=== PATIENT | male | born 1945 | race Caucasian/White ===

== ENCOUNTER 2019-12-09 05:50 | Inpatient (IN) ==
--- NOTE | 2019-11-20 11:53 | PAT Medication Instructions ---
Medication Instructions Date of Service November 20, 2019 Home Medications allopurinol 300 mg PO QAM aspirin [Aspir-81] 81 mg PO QAM benralizumab [Fasenra] 30 mg SUBCUT Q8WK budesonide-formoterol [Symbicort] 2 puff INHALATION BID clopidogrel [Plavix] 75 mg PO QAM coenzyme Q10 [Co Q-10] 100 mg PO BID furosemide [Lasix] 40 mg PO PM furosemide [Lasix] 80 mg PO QAM gabapentin 800 mg PO TID latanoprost 1 drp OPHTHALMIC (EYE) PM mecobalamin (vitamin B12) [B12 Active] 1,000 mcg PO QAM metformin 500 mg PO BID metoprolol succinate 100 mg PO PM potassium chloride 20 meq PO QAM turmeric 400 mg PO BID ASK your prescriber and surgeon aspirin [Aspir-81] 81 mg PO QAM benralizumab [Fasenra] 30 mg SUBCUT Q8WK clopidogrel [Plavix] 75 mg PO QAM STOP taking 2 weeks before surgery (or as soon as possible if surgery is within 2 weeks) coenzyme Q10 [Co Q-10] 100 mg PO BID turmeric 400 mg PO BID DO NOT take the morning of surgery furosemide [Lasix] 80 mg PO QAM mecobalamin (vitamin B12) [B12 Active] 1,000 mcg PO QAM metformin 500 mg PO BID potassium chloride 20 meq PO QAM Take morning of surgery With a small sip of water, OTHERWISE NOTHING TO EAT OR DRINK AFTER MIDNIGHT: allopurinol 300 mg PO QAM budesonide-formoterol [Symbicort] 2 puff INHALATION BID gabapentin 800 mg PO TID Take evening before surgery budesonide-formoterol [Symbicort] 2 puff INHALATION BID furosemide [Lasix] 40 mg PO PM gabapentin 800 mg PO TID latanoprost 1 drp OPHTHALMIC (EYE) PM metformin 500 mg PO BID metoprolol succinate 100 mg PO PM Other Notes If you have any questions please call us at [phone] or [phone] or [phone] or [phone]
--- NOTE | 2019-11-25 11:49 | Anesthesiology Consultation ---
Date of Service November 25, 2019 Assessment & Plan (1) Encounter for pre-operative examination: - Awaiting most recent cardiology office visit note, EKG, ECHO (Dr. Espinoza). Also, patient states stress test scheduled 11/25 by cardiology. Awaiting report. - Awaiting optimization from pulmonary (Dr. Solis). - Anemia: H/H 10//34.5 on preop labs. No known hx of anemia reported by patient and no available comparison labs. Awaiting response from PCP (Dr. Storm). Per PAT assessment on 11/24: Travel screen- Lives in [facility]. Wears mask in public. No known COVID-19 positive contacts. No current COVID-19 related symptoms. No hx of COVID-19 testing. - Check BSG AM DOS - ASA instructions per surgeon/prescriber Chart Review Chart Review: Patient seen in Pre Admission Testing Teaching & Discussion Pre-Anesthesia Teaching/Discussion Notes: Instructed NPO after midnight before surgery,except medications with 15 cc of water. Medication instructions provided according to the PAT guidelines. History Surgery Operation Date: 12/09/19 07:45 Proposed Procedures p L3-L5 Decompression and Fusion, Spinal Cord Monitoring - Carlos Jolly, Height/Weight Height: 5 ft 10 in Weight: 111.4 kg Allergies Allergy/AdvReac Type Severity Reaction Status Date / Time ketorolac [From Toradol] Allergy Severe Difficulty Verified 11/17/19 12:11 Breathing Medications Home Medications Medication Instructions Recorded Confirmed Last Taken allopurinol 300 mg PO QAM 11/17/19 11/17/19 Unknown aspirin [Aspir-81] 81 mg PO QAM 11/17/19 11/17/19 Unknown benralizumab [Fasenra] 30 mg SUBCUT Q8WK 11/17/19 11/17/19 Unknown budesonide-formoterol [Symbicort] 2 puff INHALATION BID 11/17/19 11/17/19 Unkn own coenzyme Q10 [Co Q-10] 100 mg PO BID 11/17/19 11/17/19 Unknown furosemide [Lasix] 40 mg PO PM 11/17/19 11/17/19 Unknown furosemide [Lasix] 80 mg PO QAM 11/17/19 11/17/19 Unknown gabapentin 800 mg PO TID 11/17/19 11/17/19 Unknown latanoprost 1 drp OPHTHALMIC (EYE) PM 11/17/19 11/17/19 Unknown mecobalamin (vitamin B12) [B12 1,000 mcg PO QAM 11/17/19 11/17/19 Unknown Active] metformin 500 mg PO BID 11/17/19 11/17/19 Unknown metoprolol succinate 100 mg PO PM 11/17/19 11/17/19 Unknown potassium chloride 20 meq PO QAM 11/17/19 11/17/19 Unknown turmeric 400 mg PO BID 11/17/19 11/17/19 Unknown Past Medical History Medical History Asthma stable Atrial fibrillation CHF (congestive heart failure) Chronic obstructive pulmonary disease stable, 2 LPM O2 (rare use)- on Fasenra Degenerative disc disease Diabetes mellitus, type 2 NIDDM Obesity Osteoarthritis UTI (urinary tract infection) on Bactrim DS (to be completed prior to surgery) Exercise / Class Metabolic Activity III < 4 Walking/Shop/Light housework (walker PRN, wheelchair for longer distances) Past Surgical History Surgical History H/O cardiac radiofrequency ablation 2017> SUCCESSFUL FOR A FEW DAYS THEN ANOTHER CARDIOVERSION History of appendectomy History of bronchoscopy DECEMBER 2018 History of cardiac cath 2009> NO STENTS History of cardioversion X2 LAST ONE 2017> NOW ON METOPROLOL BUT STILL IN AFIB History of colonoscopy History of endoscopic sinus surgery Presence of Watchman left atrial appendage closure device NO LONGER PRESENT > REMOVED MAY 2019 > DR. ESPINOZA- WAS ON PLAVIX POST- OPERATIVELY, SINCE DISCONTINUED BY CARDIO Past Anesthesia History No Hx of Anesthesia Complications and No Family Hx of Anesthesia Complications History of PONV No Hx of PONV and No Hx of Motion Sickness Social History Smoking Status: Former smoker Do You Dip or Chew Tobacco: No Smoking End Date: Quit 1980 Hx Alcohol Use: Yes Alcohol type: beer alcohol intake frequency: holidays/special occasions only Hx Substance Use: No substance use type: does not use Review of Systems Rare wheeze. Patient denies chest pain, shortness of breath, fever, chills, c ough, palpitations. Physical Exam Vital Signs VITALS BP 102/64 P 87 TEMP 98.1 SP02 89%RA RESP 16 PHYSICAL Full neck and c-spine range of motion. Full TMJ range of motion. TMD 3 finger breaths Mallampati Score 1 Dentition: intact, + cap on molar left lower Lungs: clear throughout to auscultation Cardiac: regular rate and rhythm, no murmurs noted Spine: normal Carotid arteries: negative bruit Extremities: no edema Testing Laboratory Results 11/25/19 13:27 PT 11.5 Seconds (9.0-12.0) 11/25/19 13:27 INR 1.1 (0.9-1.1) 11/25/19 13:27 APTT 29.7 Seconds (21.0-31.0) 11/25/19 13:27 Blood Type O Positive 11/25/19 13:27 Antibody Screen NEGATIVE 11/25/19 13:27 Surgeon's office made aware of elevated WBC. 11/23/19 UA: + bacteria (prescribed bactrim ds by PCP/abx to be completed prior to surgery. Per Domitila at surgeon's office, they request UA be rechecked AM DOS/order placed) 11/19/19 SODIUM 142 POTASSIUM 4.2 CHLORIDE 98 CO2 28 BUN 21 CREATININE 1.22 GLUCOSE 138 10/17/19 HGBA1C 7.5%
[2019-11-25 13:47] LABS: Basophils # (auto) 0.05 K/uL (0-0.2); Basophils % (auto) 0.3 %; Hematocrit (blood only) 34.5 % (42-52); Hemoglobin 10.6 g/dL (14.0-18.0); Immature Granulocytes % (auto) 1.3 %; Lymphocytes # (auto) 0.92 K/uL (1.2-3.4); Lymphocytes % (auto) 5.9 %; Mean Corpuscular Hgb Conc 30.7 g/dL (32-36); Mean Corpuscular Volume 94.5 fL (80-100); Monocytes # (auto) 1.09 K/uL (0.11-0.59); Monocytes % (auto) 6.9 %; Neutrophils # (auto) 13.43 K/uL (1.4-6.5); Neutrophils % (auto) 85.6 %; Platelet Count 383 K/uL (130-400); RDW Coefficient of Variation 17.1 % (11.5-14.5); RDW Standard Deviation 59.5 fL (36.4-46.3); Red Blood Count 3.65 M/uL (4.7-6.1); White Blood Count 15.69 K/uL (4.8-10.8)
[2019-11-25 13:57] LABS: INR 1.1 (0.9-1.1); Partial Thromboplastin Ratio 1.1; Partial Thromboplastin Time 29.7 Seconds (21.0-31.0); Prothrombin Time 11.5 Seconds (9.0-12.0)
[2019-12-09] MEDS ORDERED: CeleBREX 200 MG CAP PO SCH (06:00)
[2019-12-09] MEDS ORDERED: GABAPENTIN 300 MG CAP PO SCH (06:00)
[2019-12-09] MEDS ORDERED: CEFAZOLIN 2000MG 2,000 MG/15 ML SYR IV SCH (06:00)
[2019-12-09] MEDS ORDERED: LR 15ML/HR IV SCH (06:00)
[2019-12-09] MEDS ORDERED: ACETAMINOPHEN 500 MG TAB PO SCH (06:00)
[2019-12-09 06:43] LABS: Appearance Urine Clear (Clear); Bilirubin Urine Negative (Negative); Blood Urine Negative (Negative); Color Urine Yellow; Glucose Urine UA Negative (Negative); Ketones Urine Negative (Negative); Leukocyte Esterase Urine Negative (Negative); Nitrite Urine Negative (Negative); Protein Urine Negative (Negative); Specific Gravity Urine 1.025 (1.000-1.030); Urobilinogen Urine Negative (Negative)
[2019-12-09] MEDS ORDERED: GLYCOPYRROLATE 0.2 MG/ML VIAL ONE ×2 (06:56→10:23)
[2019-12-09] MEDS ORDERED: DEXAMETHASONE SOD INJ 4 MG/ML VIAL ONE (06:56)
[2019-12-09] MEDS ORDERED: ONDANSETRON INJ 2 MG/ML 2 ML VIAL ONE (06:56)
[2019-12-09] MEDS ORDERED: LIDOCAINE HCL 2% 2 ML VIAL/AMP(20MG/ML) INFIL ONE (06:56)
[2019-12-09] MEDS ORDERED: NEOSTIGMINE METHYLSULFATE 5 MG/5 ML SYR ONE (06:56)
[2019-12-09] MEDS ORDERED: PROPOFOL IV EMULSION 10 MG/ML 20 ML VIAL IV ONE (06:56)
[2019-12-09] MEDS ORDERED: fentaNYL citrate 100 MCG/2 ML VIAL ONE (06:57)
[2019-12-09] MEDS ORDERED: MIDAZOLAM HCL 1 MG/ML 2ML VIAL ONE (06:57)
[2019-12-09] MEDS ORDERED: BACITRACIN INJ 50,000 UNIT VIAL ONE (07:01)
[2019-12-09] MEDS ORDERED: BUPIVACAINE 0.5 % 5 MG/1 ML MPF 30ML VIAL ONE (07:02)
[2019-12-09] MEDS ORDERED: EPINEPHrine INJ 1 MG/ML AMP ONE (07:02)
--- NOTE | 2019-12-09 07:34 | History & Physical Bridge Note ---
Date of Service December 09, 2019 History & Physical Bridge Note I have examined the patient, reviewed the History & Physical and in the interval since the performance of the History & Physical I have noted the following changes of clinical significance: no changes noted
--- NOTE | 2019-12-09 07:35 | History & Physical Report ---
Date of Service December 09, 2019 Assessment & Plan (1) Neurogenic claudication due to lumbar spinal stenosis: L4-S1 decompression fusion Present on Admission?: Yes History of Present Illness Chief Complaint: Back and bilateral leg pain Primary Care Provider: Gomez Storm This is a 74-year-old male presents with chronic persistent back and bilateral leg pain. After failing extensive course of nonoperative care is here for surgical invention. Allergies Allergy/AdvReac Type Severity Reaction Status Date / Time ketorolac [From Toradol] Allergy Severe Difficulty Verified 12/09/19 06:39 Breathing Home Medications Home Medications Medication Instructions Recorded Confirmed Type allopurinol 300 mg PO QAM 11/17/19 12/09/19 History aspirin [Aspir-81] 81 mg PO QAM 11/17/19 12/09/19 History benralizumab [Fasenra] 30 mg SUBCUT Q8WK 11/17/19 12/09/19 History budesonide-formoterol [Symbicort] 2 puff INHALATION BID 11/17/19 12/09/19 History coenzyme Q10 [Co Q-10] 100 mg PO BID 11/17/19 12/09/19 History furosemide [Lasix] 40 mg PO PM 11/17/19 12/09/19 History furosemide [Lasix] 80 mg PO QAM 11/17/19 12/09/19 History gabapentin 800 mg PO TID 11/17/19 12/09/19 History latanoprost 1 drp OPHTHALMIC (EYE) PM 11/17/19 12/09/19 History mecobalamin (vitamin B12) [B12 1,000 mcg PO QAM 11/17/19 12/09/19 History Active] metformin 500 mg PO BID 11/17/19 12/09/19 History metoprolol succinate 100 mg PO PM 11/17/19 12/09/19 History potassium chloride 20 meq PO QAM 11/17/19 12/09/19 History turmeric 400 mg PO BID 11/17/19 12/09/19 History prednisone 20 mg PO DAILY 12/09/19 12/09/19 History Past Med/Surg History Medical History Asthma stable Atrial fibrillation CHF (congestive heart failure) Chronic obstructive pulmonary disease stable, 2 LPM O2 (rare use)- on Fasenra Degenerative disc disease Diabetes mellitus, type 2 NIDDM Obesity Osteoarthritis UTI (urinary tract infection) on Bactrim DS (to be completed prior to surgery) Surgical History H/O cardiac radiofrequency ablation 2017> SUCCESSFUL FOR A FEW DAYS THEN ANOTHER CARDIOVERSION History of appendectomy History of bronchoscopy DECEMBER 2018 History of cardiac cath 2009> NO STENTS History of cardioversion X2 LAST ONE 2017> NOW ON METOPROLOL BUT STILL IN AFIB History of colonoscopy History of endoscopic sinus surgery Presence of Watchman left atrial appendage closure device NO LONGER PRESENT > REMOVED MAY 2019 > DR. LEE- WAS ON PLAVIX POST- OPERATIVELY, SINCE DISCONTINUED BY CARDIO Social History Preferred Language: Omani Communication Ability: Effective High School Sports Coach Required: No Beliefs That Will Affect Care: None Current Living Situation: Spouse Other Information That Helps Us Care for You: No Feels Safe at Home: Yes Safety Concerns: Feels Safe At This Time Smoking Status: Former smoker Do You Dip or Chew Tobacco: No ; Smoking End Date: Quit 1980 ; Second Hand Exposure: No ; Tobacco Cessation Education Requested by Patient: No Hx Alcohol Use: Yes Alcohol type: beer Hx Substance Use: No Physical Exam Physical Exam: Patient is alert and oriented neurologically intact. Heart regular rate and rhythm. Lungs clear to auscultation. Results & Data Vital Signs (Past 12 Hours) Vital Signs Temp Pulse Resp BP Pulse Ox 12/09/19 06:28 36.7 C 76 20 133/90 96
[2019-12-09] MEDS ORDERED: ePHEDrine sulfate 50 MG/ML AMP IV PRN (07:59)
[2019-12-09] MEDS ORDERED: ONDANSETRON INJ 2 MG/ML 2 ML VIAL IV PRN ×2 (07:59→11:52)
[2019-12-09] MEDS ORDERED: LABETALOL HCL IV 5 MG/ML 20ML IV PRN (07:59)
[2019-12-09] MEDS ORDERED: PHENYLEPHRINE 100MCG/ML 5ML SYR IV PRN (07:59)
[2019-12-09] MEDS ORDERED: MEPERIDINE HCL 25 MG/ML CARP/VIAL IV PRN (07:59)
[2019-12-09] MEDS ORDERED: HYDROmorphone INJ 1 MG/ML SYRINGE IV PRN ×2 (07:59→11:52)
[2019-12-09] MEDS ORDERED: ATROPINE SULFATE 0.1 MG/ML 10ML SYR IV PRN (07:59)
[2019-12-09] MEDS ORDERED: fentaNYL citrate 100 MCG/2 ML VIAL IV PRN (07:59)
[2019-12-09] MEDS ORDERED: VANCOMYCIN HCL 1000MG/20ML VIAL ONE (08:04)
[2019-12-09] MEDS ORDERED: GENTAMICIN SULFATE 40 MG/ML 2 ML VIAL ONE (08:04)
[2019-12-09] MEDS ORDERED: HYDROCORTISONE SOD SUCCINATE 100 MG/2 ML VIAL ONE (08:11)
[2019-12-09] MEDS ORDERED: SUCCINYLCHOLINE CHLORIDE 20 MG/ML 10 ML VIAL IV ONE (08:11)
[2019-12-09] MEDS ORDERED: ROCURONIUM BROMIDE 10 MG/ML 5 ML VIAL IV ONE (08:11)
[2019-12-09] MEDS ORDERED: HYDROmorphone INJ 2 MG/ML SYR/VIAL ONE (08:32)
[2019-12-09] MEDS ORDERED: ePHEDrine sulfate 50 MG/ML SYR ONE (09:19)
[2019-12-09] MEDS ORDERED: PHENYLEPHRINE 100MCG/ML 5ML SYR ONE (09:19)
[2019-12-09] MEDS ORDERED: FLOSEAL HEMOSTATIC MATRIX 10ML TOP ONE (09:50)
--- NOTE | 2019-12-09 10:01 | Operative Report ---
Post Operative Report Pre & Post Diagnosis Operation Date: 12/09/19 07:45 Pre-Op Diagnosis: LUMBAR SPINAL STENOSIS W NEUROGENIC CLAUDICATION Spondylolisthesis L4-L5. Post-Op Diagnosis: Same I identified the patient and participated in the time-out.: Yes Procedure Operation Date: 12/09/19 07:45 Actual Procedures #1 lumbar decompression with bilateral medial facetectomies and foraminotomies L3-4, L4-5 and L5-S1. #2 posterior spinal fusion L4-5 L5-S1. #3 placement posterior instrumentation L4-5 L5-S1. #4 interbody fusion L4-5. #5 placement of peek cage 12 x 26 mm L4-5. #6 placement locally harvested morselized autograft in the posterior gutters. #7 placement infuse collagen sponge, master graft in the posterior gutters and ostial amp and interbody space. Surgeon Carlos Jolly, Bead Worker Sewing Janice Estevez Estimated Blood Loss 150 Findings See Below Patient is 5 foot 10 inches tall weighing over 109 kg with a BMI in excess of 34. The patient's body habitus did add significant technical difficulty adding at least 25% increase in operative time requiring her deepest retractors and longest instruments in order to perform his procedure. Specimens None Indications This is a 74-year-old male who presents with the above-mentioned diagnosis after failing extensive course of nonoperative care is here for the above-mentioned procedure. Description of Procedure Patient was met with identified informed consent obtained. Patient was then taken to the operative suite underwent intubation and placed in a prone position the Lance table on top of the Alfonso frame. All bony prominences well-padded eyes inspected to ensure no external pressure placed upon them. This point the lumbar spine was prepped and draped in normal sterile fashion. Sharp dissection with the assistance of Bovie cautery was performed down to and exposing the lamina and transverse processes of L4-L5 and the sacral ala bilaterally. From a caudal cephalad fashion complete laminectomy of L5 L4 and partial laminectomy of L3 was performed including bilateral medial facetectomies and foraminotomies addressing severe spinal stenosis. After this complete pedicle screws were then placed in L4-L5 and S1 levels bilaterally with assistance of fluoroscopy and appropriately sized frankie placed. By way of a trans-foraminal approach on the left complete discectomy of L4-5 was performed endplates curetted to subcortical bleeding bone and a 12 x 26 mm peek cage filled with osteo-bone graft tapped in position. The rods were then locked into final position bilaterally. The transverse processes of L4-L5 and the sacral ala burred to subcortical bleeding bone. Infuse collagen sponge master graft local autograft was placed in the posterior lateral gutters. 15 round YVAN drain inserted. The incision was then closed with 1 Vicryl in the fascia 2-0 Vicryl subcutaneously and 4 Monocryl for final skin closure. Steri-Strips dressings placed. Patient waken taken to PACU stable condition. Please note spinal cord monitoring was utilized that the procedure no changes noted. Lastly Janice sEtevez was present at the entire procedure involved the patient positioning complex portions of the procedure and final skin closure. I attest to the content of the Intraoperative Record and any orders documented therein. Any exceptions are noted below.
--- NOTE | 2019-12-09 10:36 | Fluoroscopy Report ---
FL lumbar spine 2-3V CLINICAL HISTORY: L3-L5 DECOMPRESSION AND FUSIONpain COMPARISON STUDY: None FLUOROSCOPY TIME: 29 seconds NUMBER OF FLUOROSCOPIC IMAGES: 2 FINDINGS: Image intensifier utilized for an L4-S1 laminectomy and fusion. A disc spacer is present at L4-L5. IMPRESSION: Image intensifier utilized for an L4-S1 laminectomy and fusion ACT 112: Negative or not required by law. The above report was generated using voice recognition software. It may contain grammatical, syntax or spelling errors. Electronically signed by: Doug Joseph M.D. 12/09/2019 10:35 AM
[2019-12-09 10:58] LABS: Hemoglobin 9.7 g/dL (14.0-18.0)
--- NOTE | 2019-12-09 11:15 | Anesthesiology Progress Note ---
Date of Service December 09, 2019 Anesthesia Post Procedure Vital Signs Vital Signs: Temp Pulse Pulse Resp BP BP Pulse Ox 12/09/19 11:05 76 14 108/74 97 12/09/19 10:55 74 16 104/68 97 12/09/19 10:45 76 13 110/74 98 12/09/19 10:35 72 16 111/70 97 12/09/19 10:25 77 14 113/72 100 12/09/19 10:15 36.6 C 82 16 112/72 100 12/09/19 06:28 36.7 C 76 20 133/90 96 Pain Intensity Back: Pain Intensity: 2 Transfer of Care Handoff Completed per policy Notes Mental Status: alert / awake / arousable Patient Amnestic to Procedure: Yes Nausea / Vomiting: adequately controlled Pain: adequately controlled Airway Patency, RR, SpO2: stable & adequate BP & HR: stable & adequate Hydration State: stable & adequate Anesthetic Complications: no major complications apparent and Pt Satisfied with anesthetic care Notes: The patient did well during surgery. He was monitored with an arterial line and was hemodynamically stable. He now is awake and comfortable in PACU. Postop hgb is 9.7 down from preop level of 10.6. Postop BSG is 147. I spoke to the [facility] Hospitalist team and they will follow him on the floor.
[2019-12-09] MEDS ORDERED: ACETAMINOPHEN 1,000 MG/100 ML VIAL IV PRN (11:52)
[2019-12-09] MEDS ORDERED: DO NOT ADMINISTER PNEUMOCOCCAL VACCINE PRN (11:52)
[2019-12-09] MEDS ORDERED: bisacodyL 10 MG SUPP PR PRN (11:52)
[2019-12-09] MEDS ORDERED: PROMETHAZINE HCL 12.5 MG in SODIUM CHLORIDE 0.9% 50 ML IV PRN (11:52)
[2019-12-09] MEDS ORDERED: ONDANSETRON 4 MG OD TAB PO PRN (11:52)
[2019-12-09] MEDS ORDERED: METOCLOPRAMIDE HCL INJ 5 MG/ML 2 ML VIAL IV PRN (11:52)
[2019-12-09] MEDS ORDERED: DO NOT ADMINISTER FLU VACCINE PRN (11:52)
[2019-12-09] MEDS ORDERED: NALOXONE HCL 0.4 MG/1 ML VIAL/CARP IV PRN (11:52)
[2019-12-09] MEDS ORDERED: OXYCODONE HCL IR 5 MG TAB (IMMEDIATE RELEASE) PO PRN (11:52)
[2019-12-09] MEDS ORDERED: FAMOTIDINE 20 MG TAB PO PRN (11:52)
[2019-12-09] MEDS ORDERED: LORazepam 0.5 MG/1 ML VIAL IV PRN (11:52)
[2019-12-09] MEDS ORDERED: SOD PHOSPHATE/SOD BIPHOSPHATE ENEMA 132 ML BTL PR PRN (11:52)
[2019-12-09] MEDS ORDERED: HYDROmorphone INJ 0.5 MG/0.5 ML SYR IV PRN (11:52)
[2019-12-09] MEDS ORDERED: ALUMINUM/MAGNESIUM SUSP 30 ML UDC PO PRN (11:52)
[2019-12-09] MEDS ORDERED: MAGNESIUM HYDROXIDE SUSP 30 ML UDC PO PRN (11:52)
[2019-12-09] MEDS ORDERED: LORazepam 0.5 MG TAB PO PRN (11:52)
[2019-12-09] MEDS ORDERED: TRAMADOL HCL 50 MG TABLET PO PRN (11:52)
[2019-12-09] MEDS ORDERED: GLUCAGON FOR INJ 1 MG VIAL IM PRN (12:15)
[2019-12-09] MEDS ORDERED: CARBOHYDRATES FOR HYPOGLYCEMIA PO PRN (12:15)
[2019-12-09] MEDS ORDERED: GLUCOSE 40% GEL 15 GM TUBE PO PRN (12:15)
[2019-12-09] MEDS ORDERED: GLUCOSE 10 TABS/TUBE PO PRN (12:15)
[2019-12-09] MEDS ORDERED: DEXTROSE 50% 50 ML SYRINGE IV PRN (12:15)
[2019-12-09] MEDS ORDERED: PHARMACY GLYCEMIC MGMT CONSULT PRN (12:18)
[2019-12-09] MEDS ORDERED: ALBUT/IPRATROP 3MG/0.5MG NEB 3 ML VIAL NEB PRN (13:12)
--- NOTE | 2019-12-09 13:16 | Consultation ---
Date of Consultation December 09, 2019 Assessment & Plan (1) Status post lumbar surgery: Post op day# 0 S/P L-S1 by Dr Jolly EBL#150ml Post op doing well with pain controlled -pain management per ortho -wound management per ortho -PT/OT as appropriate -DVT prophylaxis per ortho -incentive spirometry -monitor H&H for acute blood loss anemia; Pre-op Hgb: 10.6, repeat Hgb today post op: 9.7 (2) Atrial fibrillation: S/P unsuccessful cardioversion in 2018, s/p ablation in 2018 and Watchman procedure in 04/[address] Espinoza in [place] -Rate controlled -Not on anticoagulation -Continue aspirin, metoprolol (3) Systolic CHF: Ischemic cardiomyopathy EF 30-35% on recent outpatient echo -Plan to resume lasix tomorrow (4) Decubitus ulcer: H/O decubitus ulcer for several months. Last saw wound clinic in [place] in 06/2019 -Wound nurse (5) Diabetes mellitus, type 2: -Obtain A1c in AM -Hold metformin -Glycemic pharmacy on board, Novolog sliding scale per protocol, appreciate pharmacy assistance (6) Chronic obstructive pulmonary disease: Asthma O2 dependent at 2L HS and prn. Follows with pulmonology in [place] -Continue supplemental oxygen -Continue daily prednisone 20mg, home inhalers -Duonebs prn (7) CKD (chronic kidney disease): Unknown stage and baseline -Obtain BMP tomorrow -Monitor renal functions -Avoid nephrotoxic agents when possible (8) Gout: -Continue allopurinol DVT Prophylaxis -SCDs Disposition per primary service Follows with Dr Gomez Storm in [place] for routine care Pt was seen and care coordinated with Dr Garcia. See addendum Supervising Physician Co-Signing Physician Notes Patient is a 74-year-old male with history of COPD, chronic oxygen dependency, atrial fibrillation S/P ablation and watchman procedure, nonischemic cardiomyopathy, diabetes mellitus and other medical problems was seen and examined postop after having lumbar decompression, fusion surgery by Dr. Jolly. Patient is doing well postop. Denies any significant pain at the surgical site. Also denies any chest pain, shortness of breath, dizziness, numbness or tingling in feet. Tolerating diet. On exam patient is obese, no apparent distress, normocephalic atraumatic, lungs are clear to auscultation, irregularly irregular rhythm, no audible murmur, 2+ bilateral lower extremity edema, back--surgical site in dressing, abdomen soft, obese, no tenderness, normal bowel sounds, grossly no focal neurological deficits. Patient is consulted for postop medical management. DVT prophylaxis, wound care, activity as per primary team. Continue bowel regimen to prevent constipation. Monitor CBC for postop blood loss anemia. Continue home medications for atrial fibrillation. Current ly not on anticoagulation. Will hold p.o. medications for diabetes. Utilize insulin therapy while hospitalized. I personally reviewed the record. Patient is interviewed and examined at bedside. Patient's care is coordinated with Sandrine Araya PA-C. Please refer to the documentation above for details of patient's presentation and for discussion of other issues. History of Present Illness Requesting Physician: Dr Jolly Reason for Consultation: Post op medical management Attending Physician: Carlos Jolly, DO History of Present Illness Pt is 74 y/o M with PMH asthma, COPD, O2 dependent 2L HS and prn, atrial fibrillation s/p unsuccessful cardioversion in 2017, s/p ablation in 2018 and Watchman procedure in 04/2019, nonischemic cardiomyopathy, systolic CHF, DM II, HTN, CKD, gout seen in medical consultation s/p L3-S1 decompression and fusion today by Dr Jolly. Post op pt reports pain controlled. Still with paresthesias BLE. Tolerating liquid lunch. Denies N/V, SOB, CP, palpitations, dizziness. Has Rogers cath in place. Reports chronic BLE edema, denies any worsening recently. Pt reports decubitus ulcer since 06/2019 and reports currently healing. Denies fever/chills, diaphoresis, LARIOS, neck pain, cough, choking, abdominal pain, rashes. Allergies Allergy/AdvReac Type Severity Reaction Status Date / Time ketorolac [From Toradol] Allergy Severe Difficulty Verified 12/09/19 06:39 Breathing Home Medications Home Medications Medication Instructions Recorded Confirmed Type allopurinol 300 mg PO QAM 11/17/19 12/09/19 History aspirin [Aspir-81] 81 mg PO QAM 11/17/19 12/09/19 History benralizumab [Fasenra] 30 mg SUBCUT Q8WK 11/17/19 12/09/19 History budesonide-formoterol [Symbicort] 2 puff INHALATION BID 11/17/19 12/09/19 History coenzyme Q10 [Co Q-10] 100 mg PO BID 11/17/19 12/09/19 History furosemide [Lasix] 40 mg PO PM 11/17/19 12/09/19 History furosemide [Lasix] 80 mg PO QAM 11/17/19 12/09/19 History gabapentin 800 mg PO TID 11/17/19 12/09/19 History latanoprost 1 drp OPHTHALMIC (EYE) PM 11/17/19 12/09/19 History mecobalamin (vitamin B12) [B12 1,000 mcg PO QAM 11/17/19 12/09/19 History Active] metformin 500 mg PO BID 11/17/19 12/09/19 History metoprolol succinate 100 mg PO PM 11/17/19 12/09/19 History potassium chloride 20 meq PO QAM 11/17/19 12/09/19 History turmeric 400 mg PO BID 11/17/19 12/09/19 History prednisone 20 mg PO DAILY 12/09/19 12/09/19 History Patient History Medical History (Updated 12/09/19 @ 14:19 by Sandrine Araya PA-C) Asthma stable Atrial fibrillation CHF (congestive heart failure) Chronic obstructive pulmonary disease stable, 2 LPM O2 (rare use)- on Fasenra CKD (chronic kidney disease) Degenerative disc disease Diabetes mellitus, type 2 NIDDM Gout Obesity Osteoarthritis Systolic CHF UTI (urinary tract infection) on Bactrim DS (to be completed prior to surgery) Surgical History (Updated 12/09/19 @ 14:19 by Sandrine Araya PA-C) H/O cardiac radiofrequency ablation 2018> SUCCESSFUL FOR A FEW DAYS THEN ANOTHER CARDIOVERSION History of appendectomy History of bronchoscopy DECEMBER 2018 History of cardiac cath 2009> NO STENTS History of cardioversion X2 LAST ONE 2017> NOW ON METOPROLOL BUT STILL IN AFIB History of colonoscopy History of endoscopic sinus surgery Presence of Watchman left atrial appendage closure device NO LONGER PRESENT > REMOVED MAY 2019 > DR. ESPINOZA- WAS ON PLAVIX POST- OPERATIVELY, SINCE DISCONTINUED BY CARDIO Social History (Updated 12/09/19 @ 14:17 by Sandrine Araya PA-C) Preferred Language: Pashto Communication Ability: Effective Woods Laborer Required: No Beliefs That Will Affect Care: None Current Living Situation: Spouse Other Information That Helps Us Care for You: No Feels Safe at Home: Yes Safety Concerns: Feels Safe At This Time Smoking Status: Former smoker Do You Dip or Chew Tobacco: No ; Smoking End Date: Quit 1980 ; Second Hand Exposure: No ; Tobacco Cessation Education Requested by Patient: No Hx Alcohol Use: Yes (1-2 drinks a week) Alcohol type: beer Hx Substance Use: No Review of Systems Review of Systems: All systems reviewed & are unremarkable except as noted in HPI & below Physical Exam Physical Exam: General: no distress, obese Head: normocephalic, atraumatic Eyes: conjunctiva non-injected, anicteric ENT: normal inspection external ears, nose, mucous membranes moist Neck: supple, trachea midline Lungs: clear, no respiratory distress, no wheezing/rhonchi/rales CV: irregularly irregular, no murmur, + pretibial edema Abd: normal BS, soft,protuberant, non-tender Ext: no cyanosis, no calf tenderness Neuro: A&O x 3, no focal deficits noted, normal affect Skin: warm, dry Results & Data ([facility]) Vital Signs (Past 12 Hours) Vital Signs Temp Pulse Pulse Resp BP BP Pulse Ox 12/09/19 12:45 88 16 106/71 99 12/09/19 12:15 68 16 102/67 98 12/09/19 11:45 36.4 C L 72 17 105/70 98 12/09/19 11:25 36.5 C 73 16 107/70 97 12/09/19 11:15 76 14 108/74 97 12/09/19 11:05 76 14 108/74 97 12/09/19 10:55 74 16 104/68 97 12/09/19 10:45 76 13 110/74 98 12/09/19 10:35 72 16 111/70 97 12/09/19 10:25 77 14 113/72 100 12/09/19 10:15 36.6 C 82 16 112/72 100 12/09/19 06:28 36.7 C 76 20 133/90 96 Laboratory Results Short CBC 12/09/19 Range/Units 10:49 Hgb 9.7 L (14.0-18.0) g/dL Hct 33.0 L (42-52) % Urine 12/09/19 Range/Units 06:30 Urine Color Yellow Urine Appearance Clear (Clear) Urine pH 5.0 (4.5-7.5) Ur Specific [place] 1.025 (1.000-1.030) Urine Protein Negative (Negative) Urine Glucose (UA) Negative (Negative)
[2019-12-09] MEDS ORDERED: NovoLIN-N (NPH) PER UNIT CHARGE SQ ONE (13:30)
--- NOTE | 2019-12-09 13:42 | Pharmacy Report ---
Glycemic Control Consultation - Date of Service December 09, 2019 - Scope Scope: Glycemic Pharmacist consulted for glycemic control and to write orders per [facility] inpatient glycemic control protocol. - Objective Weight: 109.3 kg Accuchecks BSG (last 24hrs): 12/09/19 12/09/19 12/09/19 06:24 10:17 12:19 POC Glucose 154 H 147 H 170 H HbA1c: Pending for 12/10/19 - Recent Pertinent Medications Outpatient Anti-diabetic Regimen: * Metformin 500mg PO BIDM Risk Factors for Insulin Resistance: * Steroids * Recent Surgery * Diet - Assessment & Plan Assessment & Plan: ASSESSMENT: * 74yo T2DM male with unknown degree of outpatient control. A1c not listed in chart. Ordered for tomorrow AM per protocol * Pt is maintained on metformin monotherapy as an outpatient * Oral agents are not recommended for inpatient use d/t drug interactions, changing PO intake, and difficulty titrating for acute hyper/hypoglycemia. ADA recommends re-initiating outpatient oral agents 1-2 days prior to discharge if/when appropriate if they were held on admission. * Will hold oral agents for admission and utilize SQ basal bolus insulin regimen which is the recommended regimen for inpatient glycemic control. * Will initiate weight based insulin dosing for steroid hyperglycemia (pt received DXM 8mg IV) and titrate based on BSG trends. * Will start with conservative dosing since patient is only ordered a clear liquid diet and steroids have their most profound effect on post-prandial hyperglycemia. PLAN FOR INPATIENT GLYCEMIC CONTROL: * Holding outpatient oral diabetes medications * Steroid induced hyperglycemia * NPH 20 units SQ X 1 dose * Pt will resume outpatient prednisone dosing tomorrow AM - will re-eval steroid insulin dosing after A1c results and BSG trends from POD#0 * Bolus insulin * NovoLog per scale ACHS or Q6hrs while NPO * Goal Range: Low 110 mg/dL - High 140 mg/dL * Correction Factor: 20 mg/dL/unit * Nutritional / Prandial insulin per carb ratio of 1 unit per 7 grams CHO consumed * Please note that the plan above was derived based on current level of insulin resistance and hospital stress. These recommendations are appropriate for inpatient admission only. Plan of care upon discharge will need to be reassessed to avoid potential outpatient hypo/hyperglycemia. Thank you.
[2019-12-09] MEDS: SODIUM CHLORIDE 0.9% 1000ML 1,000 ML IV SCH ×2 (14:31→22:27)
[2019-12-09] MEDS: GABAPENTIN 400 MG CAP PO SCH ×2 (14:32→20:32)
[2019-12-09] MEDS: INSULIN ASPART 100 UNITS/ML 3 ML PEN SC SCH ×3 (14:34→22:27)
[2019-12-09] MEDS: CEFAZOLIN 2000MG 2,000 MG/15 ML SYR IV SCH (16:41)
[2019-12-09] MEDS: DOCUSATE SODIUM/SENNA 50/8.6MG TAB PO SCH (20:32)
[2019-12-09] MEDS: METOPROLOL SUCC 50MG EXT REL TAB PO SCH (20:33)
[2019-12-09] MEDS: LATANOPROST 0.005% OP SOLN 2.5 ML BTL OP SCH (20:34)
[2019-12-09] MEDS ORDERED: NON-FORMULARY MEDICATION (Coenzyme Q10 [Co Q-10] 100 MG) PO SCH (21:00)
[2019-12-09] MEDS ORDERED: FUROSEMIDE 40 MG TAB PO SCH (21:00)
[2019-12-10] MEDS: CEFAZOLIN 2000MG 2,000 MG/15 ML SYR IV SCH (00:45)
[2019-12-10] MEDS: POLYETHYLENE (MIRALAX) 17 GM PACK PO SCH ×4 (05:30→23:43)
[2019-12-10] MEDS: ACETAMINOPHEN 500 MG TAB PO PRN (05:35)
[2019-12-10 06:01] LABS: Basophils # (auto) 0.02 K/uL (0-0.2); Basophils % (auto) 0.1 %; Hemoglobin 9.3 g/dL (14.0-18.0); Immature Granulocytes # (auto) 0.39 K/uL (0.00-0.02); Lymphocytes # (auto) 0.91 K/uL (1.2-3.4); Lymphocytes % (auto) 4.7 %; Mean Corpuscular Hemoglobin 27.1 pg (25-34); Mean Corpuscular Hgb Conc 28.2 g/dL (32-36); Mean Corpuscular Volume 96.2 fL (80-100); Monocytes # (auto) 0.79 K/uL (0.11-0.59); Neutrophils # (auto) 17.44 K/uL (1.4-6.5); Neutrophils % (auto) 89.2 %; Platelet Count 424 K/uL (130-400); RDW Coefficient of Variation 17.5 % (11.5-14.5); RDW Standard Deviation 61.2 fL (36.4-46.3); Red Blood Count 3.43 M/uL (4.7-6.1); White Blood Count 19.55 K/uL (4.8-10.8)
[2019-12-10 06:22] LABS: BUN Creatinine Ratio 28.5 (10-20); Calcium 8.8 mg/dl (8.5-10.1); Creatinine Clr Calc Pharmacy 82.3 ml/min; Est GFR (African American) 87.2; Est GFR (Non-African American) 75.2; Magnesium 2.3 mg/dl (1.8-2.4); Potassium 4.7 mmol/L (3.5-5.1)
[2019-12-10 07:05] LABS: Estimated Average Glucose 146 mg/dl; Hemoglobin A1C 6.7 % (4.5-5.6)
[2019-12-10] MEDS ORDERED: FUROSEMIDE 80 MG TAB PO SCH (09:00)
[2019-12-10] MEDS ORDERED: POTASSIUM CHLORIDE PWD 20 MEQ PACK PO SCH (09:00)
[2019-12-10] MEDS ORDERED: NovoLIN-N (NPH) PER UNIT CHARGE SQ STA (09:01)
[2019-12-10] MEDS: FLUTICASONE/VILANTEROL 200/25MCG 14 PUFFS/INHALER INH SCH (09:42)
[2019-12-10] MEDS: INSULIN ASPART 100 UNITS/ML 3 ML PEN SC SCH ×4 (09:45→21:46)
[2019-12-10] MEDS: predniSONE 20 MG TAB PO SCH (09:51)
[2019-12-10] MEDS: allopurinoL 300 MG TAB PO SCH (09:51)
[2019-12-10] MEDS: ASPIRIN 81 MG ECTAB PO SCH (09:51)
[2019-12-10] MEDS: CYANOCOBALAMIN 500 MCG TABLET (VITAMIN B-12) PO SCH (09:51)
[2019-12-10] MEDS: GABAPENTIN 400 MG CAP PO SCH ×3 (09:52→21:44)
[2019-12-10] MEDS ORDERED: SODIUM CHLORIDE 0.9% 500 ML IV SCH (10:00)
--- NOTE | 2019-12-10 10:03 | Hospitalist Progress Note ---
Date of Service December 10, 2019 Assessment & Plan (1) Status post lumbar surgery: -POD #1 L4-S1 decompression and fusion by Dr. Jolly - activity and wound care orders as per ortho - pain control with bowel regimen - PT/OT - monitor H/H for acute blood loss anemia and transfuse blood products PRN -EBL 150 cc, drain output 420 cc so far -Hgb 10.6 -> 9.7 -> 9.3 (2) Hypotension: -BP this AM 94/58 -had some mild lightheadedness with standing -will hold furosemide today and given some gentle IVF -likely due to mild dehydration postoperatively, Hgb stable (3) Atrial fibrillation: -S/P unsuccessful cardioversion in 2018, s/p ablation in 2018 and Watchman procedure in 04/2019 -Follows with Dr Espinoza in [place] -Rate controlled on metoprolol, will continue -Not on anticoagulation (4) Systolic CHF: -Ischemic cardiomyopathy -EF 30-35% on recent outpatient echo -Holding Lasix as above; hold potassium as well, K+ 4.7 today -Monitor volume status closely (5) Decubitus ulcer: -H/O decubitus ulcer for several months. Last saw wound clinic in [place] in 06/2019 -Wound nurse (6) Diabetes mellitus, type 2: -Hgb A1c 6.7 -Hold metformin -Glycemic pharmacy on board, Novolog sliding scale per protocol, appreciate pharmacy assistance (7) Chronic obstructive pulmonary disease: -O2 dependent at 2L HS and prn. Follows with pulmonology in [place] -Continue supplemental oxygen -Continue daily prednisone 20mg, home inhalers -Duonebs prn (8) Gout: -Continue allopurinol DVT Prophylaxis -TEDs/SCDs as per spine Ortho Thank you for this consultation. We will follow the patient with you during their hospital stay. You can reach a member of the [facility] Hospitalist Team 08/01 via pager @ [phone]. Follows with Dr Gomez Storm in [place] for routine care Admission and Anticipated Discharge Date Admission Date: December 09, 2019 Supervising Physician Co-Signing Physician Notes HISTORY: Record reviewed. Patient interviewed and examined. Care coordinated with MAGI Mai; please refer to her documentation. Doing well postoperatively. No chest pain, cough, SOB, nausea, vomiting. Passing flatus, but no stool. Voiding without difficulty. Pain well-controlled. EXAM: General- no distress Lungs- clear to auscultation; no respiratory distress Cardiovascular- RRR; no JVD; trace pretibial edema Abdomen- + bowel sounds, soft, nontender Extremities- no cyanosis; no calf tenderness Neuro- alert, oriented Skin- warm & dry DATA: Hgb 9.3, WBC 19,550. BUN 28, creatinine 0.99. Other lab studies as noted. ASSESSMENT AND PLAN: Doing well postoperatively. BP's a little low this morning- received NSS bolus. Cardiac status stable. Please refer to EMERITA Cordoba's documentation for discussion of other issues. Subjective Patient seen and examined. Reports feeling a little lightheaded with standing this morning however otherwise without complaint. Reports pain is well controlled. No chest pain or shortness of breath. Denies abdominal pain or nausea. Passing flatus, no bowel movement. Rogers catheter removed this morning, has not voided yet. Physical Exam Constitutional: no acute distress Sitting up in the chair Respiratory: normal respiratory effort, lungs clear to auscultation Cardiovascular: Rate/Rhythm: + irregularly irregular Vessels: normal peripheral pulses Extremities: + pedal edema (+2) Musculoskeletal: S/p back surgery, surgical dressing dry intact, drain in place draining bloody drainage, RLE strength 5/5, LLE strength 4/5 (chronic per patient) Psychiatric: Orientation: alert and oriented x 3 Results & Data Results & Data ([facility]) Vital Signs (Past 12 Hours) Vital Signs Temp Pulse Resp BP BP Pulse Ox 12/10/19 07:00 36.5 C 73 18 99/66 L 92 12/10/19 03:55 36.4 C L 87 16 94/58 L 93 12/09/19 22:59 36.5 C 67 16 111/68 91 Laboratory Results Short CBC 12/09/19 12/10/19 Range/Units 10:49 05:24 WBC 19.55 H (4.8-10.8) K/uL Hgb 9.7 L 9.3 L (14.0-18.0) g/dL Hct 33.0 L 33.0 L (42-52) % Plt Count 424 H (130-400) K/uL BMP 12/10/19 05:24 Sodium 141 Potassium 4.7 Chloride 104 Carbon Dioxide 35 H BUN 28 H Creatinine 0.99 Glucose 128 H Calcium 8.8
--- NOTE | 2019-12-10 10:05 | Orthopedic Progress Note ---
Date of Service December 10, 2019 Assessment & Plan (1) Neurogenic claudication due to lumbar spinal stenosis: This time we will continue physical therapy monitor YVAN output hopefully discharge to rehab the next few days. Present on Admission?: Yes Admission and Anticipated Discharge Date Admission Date: December 09, 2019 Subjective Back pain is controlled leg symptoms improved. Physical Exam Physical Exam: Patient is in the chair at the bedside. Is good strength testing. Results & Data ([facility]) Vital Signs (Past 12 Hours) Vital Signs Temp Pulse Resp BP BP Pulse Ox 12/10/19 07:00 36.5 C 73 18 99/66 L 92 12/10/19 03:55 36.4 C L 87 16 94/58 L 93 12/09/19 22:59 36.5 C 67 16 111/68 91
--- NOTE | 2019-12-10 12:29 | Pharmacy Report ---
Pharmacy Glycemic Short Note 2 - Date of Service December 10, 2019 - Glycemic Short BSG Results (Last 24 hours): OUTPATIENT ANTIDIABETIC REGIMEN: * Metformin 500 mg PO BID * A1c = 6.7% from 12/10/19 ASSESSMENT: * 74yo T2DM male who is POD #1 from spinal surgery with Dr. Jolly * A1c from today demonstrates excellent outpatient T2DM control * Patient received 41 units of insulin yesterday: * 20 units basal * 21 units bolus * BSGs ranged 147 - 197 mg/dL * Fasting BSG was 135 mg/dL today. Patient is on Prednisone 20 mg PO daily at home and ordered 40 mg PO daily in hospital. Gave another 10 units of NPH this morning to account for steroid-induced hyperglycemia. Post-prandial BSG [place] [facility] [place] was acceptable at 144 mg/dL. No adjustment to CF/CR necessary. PLAN FOR INPATIENT GLYCEMIC CONTROL: * Hold outpatient oral diabetes medications * Basal insulin * NPH 10 units X 1 this morning * Will re-assess basal needs tomorrow morning * Bolus insulin * NovoLog per scale ACHS or Q6hrs while NPO * Goal Range: Low 110 mg/dL - High 140 mg/dL * Correction Factor: 20 mg/dL/unit * Nutritional / Prandial insulin per carb ratio of 1 unit per 7 grams CHO consumed PLAN FOR DISCHARGE: * A1c demonstrates excellent outpatient control of T2DM * Recommend continuing outpatient regimen upon discharge
[2019-12-10] MEDS ORDERED: FUROSEMIDE 40 MG TAB PO SCH (21:00)
[2019-12-10] MEDS: METOPROLOL SUCC 50MG EXT REL TAB PO SCH (21:41)
[2019-12-10] MEDS: LATANOPROST 0.005% OP SOLN 2.5 ML BTL OP SCH (21:41)
[2019-12-10] MEDS: DOCUSATE SODIUM/SENNA 50/8.6MG TAB PO SCH (21:43)
[2019-12-11] MEDS: POLYETHYLENE (MIRALAX) 17 GM PACK PO SCH ×4 (06:20→23:52)
[2019-12-11 07:30] LABS: BUN Creatinine Ratio 30.3 (10-20); Calcium 8.8 mg/dl (8.5-10.1); Creatinine Clr Calc Pharmacy 79.8 ml/min; Est GFR (African American) 84.1; Est GFR (Non-African American) 72.6; Potassium 4.5 mmol/L (3.5-5.1)
[2019-12-11 07:41] LABS: Hematocrit (blood only) 30.5 % (42-52); Mean Corpuscular Hemoglobin 27.7 pg (25-34); Mean Corpuscular Hgb Conc 29.5 g/dL (32-36); Mean Corpuscular Volume 93.8 fL (80-100); Mean Platelet Volume 9.4 fL (7.4-10.4); Platelet Count 390 K/uL (130-400); RDW Coefficient of Variation 17.9 % (11.5-14.5); RDW Standard Deviation 60.7 fL (36.4-46.3); Red Blood Count 3.25 M/uL (4.7-6.1); White Blood Count 21.32 K/uL (4.8-10.8)
[2019-12-11] MEDS ORDERED: NovoLIN-N (NPH) PER UNIT CHARGE SQ ONE (09:00)
[2019-12-11] MEDS: INSULIN ASPART 100 UNITS/ML 3 ML PEN SC SCH ×4 (09:15→21:43)
[2019-12-11] MEDS: FLUTICASONE/VILANTEROL 200/25MCG 14 PUFFS/INHALER INH SCH (09:23)
[2019-12-11] MEDS: predniSONE 20 MG TAB PO SCH (09:24)
[2019-12-11] MEDS: GABAPENTIN 400 MG CAP PO SCH ×3 (09:24→21:40)
[2019-12-11] MEDS: ACETAMINOPHEN 500 MG TAB PO PRN (09:24)
[2019-12-11] MEDS: ASPIRIN 81 MG ECTAB PO SCH (09:24)
[2019-12-11] MEDS: allopurinoL 300 MG TAB PO SCH (09:24)
[2019-12-11] MEDS: CYANOCOBALAMIN 500 MCG TABLET (VITAMIN B-12) PO SCH (09:24)
--- NOTE | 2019-12-11 10:13 | Pharmacy Report ---
Pharmacy Glycemic Short Note 2 - Date of Service December 11, 2019 - Glycemic Short BSG Results (Last 24 hours): OUTPATIENT ANTIDIABETIC REGIMEN: * Metformin 500 mg PO BID * A1c = 6.7% from 12/10/19 ASSESSMENT: * 74yo T2DM male who is POD #1 from spinal surgery with Dr. Jolly * A1c from today demonstrates excellent outpatient T2DM control * Patient received 39 units of insulin yesterday: * 10 units basal * 29 units bolus * BSGs ranged 135 - 199 mg/dL * Fasting BSG was 124 mg/dL today. Will give another 10 units of NPH this m orn to account for steroid-induced hyperglycemia. * Post-prandial BSGs have been increasing throughout the day. Tightened carb ratio this AM. Lunchtime BSG well controlled at 113 mg/dL. PLAN FOR INPATIENT GLYCEMIC CONTROL: * Hold outpatient oral diabetes medications * Basal insulin * NPH 10 units X 1 this morning * Bolus insulin - tightened * NovoLog per scale ACHS or Q6hrs while NPO * Goal Range: Low 110 mg/dL - High 140 mg/dL * Correction Factor: 20 mg/dL/unit * Nutritional / Prandial insulin per carb ratio of 1 unit per 5 grams CHO consumed PLAN FOR DISCHARGE: * A1c demonstrates excellent outpatient control of T2DM * Recommend continuing outpatient regimen upon discharge
--- NOTE | 2019-12-11 11:08 | Hospitalist Progress Note ---
Date of Service December 11, 2019 Assessment & Plan (1) Status post lumbar surgery: POD #2 L4-S1 decompression and fusion by Dr. Jolly tolerated procedure well EBL 150ml; YVAN drain 585ml Pain/wound management per Ortho Activity and therapy as directed by Ortho Continue to encourage incentive spirometry, he is up to 1500 Preop hemoglobin 10.6, H&H 9.0 and 30.5 today Continue bowel regimen per Ortho (2) Hypotension: On 12/09 patient had episode of hypotension with BP 94/58 and mild lightheadedness. Lasix was held and was given mild IVF. Symptoms have resolved, BP 113/70 H&H stable (3) Leukocytosis: wbc 20k pt on chronic prednisone 2/2 to COPD no s/sx of infection monitor (4) Anemia: Postoperative anemia in setting of blood loss Preop hemoglobin 10.6, hemoglobin 9.0 today Stable, no need for transfusion at this time (5) Atrial fibrillation: S/P unsuccessful cardioversion in 2018, s/p ablation in 2018 and Watchman procedure in 04/[address] Espinoza in [place] Rate controlled on metoprolol, will continue continue aspirin (6) Systolic CHF: Ischemic cardiomyopathy EF 30-35% on recent outpatient echo weight 109.3kg add daily weights, continue Strict I and O euvolemic continue metoprolol continue to hold lasix and K for today - reassess on daily basis need to resume (7) Decubitus ulcer: H/O decubitus ulcer for several months. Last saw wound clinic in [place] in 06/2019 Wound nurse (8) Diabetes mellitus, type 2: Hgb A1c 6.7 Hold metformin Glycemic pharmacy on board, Novolog sliding scale per protocol, appreciate pharmacy assistance BSG 124 (9) Chronic obstructive pulmonary disease: O2 dependent at 2L HS and prn. Follows with pulmonology in [place] Doing well off oxygen, continue incentive spirometry Continue daily prednisone 20mg, home inhalers Duonebs prn (10) Gout: Continue allopurinol DVT Prophylaxis -TEDs/SCDs as per spine Ortho Pt seen and examined in collaboration with Dr. Desai, please see addendum Thank you for this consultation. We will follow the patient with you during their hospital stay. You can reach a member of the [facility] Hospitalist Team 08/01 via pager @ [phone]. Follows with Dr Gomez Storm in [place] for routine care Admission and Anticipated Discharge Date Admission Date: December 09, 2019 Supervising Physician Co-Signing Physician Notes HISTORY: Record reviewed. Patient interviewed and examined. Care coordinated with Radha Jennings PA-C; please refer to her documentation. Doing well postoperatively. No chest pain, cough, SOB, nausea, vomiting. Passing flatus, but still no stool. Voiding without difficulty. Postop pain well-controlled. EXAM: General- no distress Lungs- clear to auscultation; no respiratory distress Cardiovascular- RRR; no JVD; trace pretibial edema; 1+ pedal edema Abdomen- + bowel sounds, soft, nontender Extremities- no cyanosis; no calf tenderness Neuro- alert, oriented Skin- warm & dry DATA: Hgb 9.0, WBC 21,320. BUN 31, creatinine 1.02. Other lab studies as noted. ASSESSMENT AND PLAN: Doing well postoperatively. BP's improved. Cardiac status stable. Acute blood loss anemia secondary to surgery. Leukocytosis probably secondary to steroids. No apparent infection. Follow. Please refer to GREGOR Jennings's documentation for discussion of other issues. Subjective Patient was seen and examined in room 324 bed 1. Follow-up lumbar decompression and fusion L4-S1 by Dr. Jolly POD #2. He is sitting up in bedside chair and overall feels well. "I just dozed off for a second." He overall feels therapy is going well and is anticipating being discharged tomorrow. He denies any fever, chills, sweats, lightheadedness, dizziness, chest pain, shortness of breath, cough, nausea, vomiting, abdominal pain. He is passing flatus but has not had BM yet. He feels he does have mildly increased lower extremity swelling, but chronically does at baseline. He overall slept well last evening. Good appetite. Review of Systems Review of Systems: All systems reviewed & are unremarkable except as noted in HPI & below Physical Exam Physical Exam: Gen: WD/WN, male, sitting up in bedside chair, NAD, A&O x3 HEENT: Normocephalic, atraumatic, conjunctivae moist, sclerae anicteric, mucous membranes moist. Lung: Clear to Auscultation bilaterally, no wheezes/rales/rhonchi Heart:Irregular rate, irregular rhythm, no murmurs, rubs, or gallops Abdomen: Protuberant abdomen, soft, NT, ND +BS x 4 Extremities: Trace pretibial edema, +1 pedal edema, right lower extremity anteriorly numerous abrasions scabbed over, no surrounding erythema Skin: Warm, no rash, negative turgor. Results & Data Results & Data ([facility]) Vital Signs (Past 12 Hours) Vital Signs Temp Pulse Resp BP Pulse Ox 12/11/19 08:01 36.8 C 55 L 16 113/70 94 Laboratory Results Short CBC 12/11/19 Range/Units 06:48 WBC 21.32 H (4.8-10.8) K/uL Hgb 9.0 L (14.0-18.0) g/dL Hct 30.5 L (42-52) % Plt Count 390 (130-400) K/uL BMP 12/11/19 06:48 Sodium 140 Potassium 4.5 Chloride 106 Carbon Dioxide 31 BUN 31 H Creatinine 1.02 Glucose 96 Calcium 8.8 Medications Administered Acetaminophen (Tylenol) 1,000 mg PO Q8H PRN PRN Reason: MILD Pain Scale 1,2,3 & Pre PT Stop: 01/08/20 11:51 Last Admin: 12/11/19 09:24 Dose: 1,000 mg Documented by: [id number] Admin: 12/10/19 05:35 Dose: 1,000 mg Documented by: [id number] Allopurinol (Zyloprim) 300 mg PO [facility] Stop: 01/09/20 08:59 Last Admin: 12/11/19 09:24 Dose: 300 mg Documented by: [id number] Admin: 12/10/19 09:51 Dose: 300 mg Documented by: [id number] Aspirin (Ecotrin Ectab) 81 mg PO [facility] Stop: 01/09/20 08:59 Last Admin: 12/11/19 09:24 Dose: 81 mg Documented by: [id number] Admin: 12/10/19 09:51 Dose: 81 mg Documented by: [id number] Cyanocobalamin (Vitamin B-12) 1,000 mcg PO [facility] Stop: 01/09/20 08:59 Last Admin: 12/11/19 09:24 Dose: 1,000 mcg Documented by: [id number] Admin: 12/10/19 09:51 Dose: 1,000 mcg Documented by: [id number] Fluticasone/Vilanterol (Breo Ellipta 200/25 Mcg Inh) 1 puffs INH DAILY [facility] Stop: 01/09/20 08:59 Last Admin: 12/11/19 09:23 Dose: 1 puffs Documented by: [id number] Admin: 12/10/19 09:42 Dose: 1 puffs Documented by: [id number] Furosemide (Lasix) 80 mg PO QAM [facility] Stop: 01/09/20 08:59 Last Admin: 12/10/19 09:52 Dose: Not Given Documented by: [id number] Gabapentin (Neurontin) 800 mg PO TID [facility] Stop: 01/08/20 13:59 Last Admin: 12/11/19 09:24 Dose: 800 mg Documented by: [id number] Admin: 12/10/19 21:44 Dose: 800 mg Documented by: [id number] Admin: 12/10/19 14:01 Dose: 800 mg Documented by: [id number] Admin: 12/10/19 09:52 Dose: 800 mg Documented by: [id number] Admin: 12/09/19 20:32 Dose: 800 mg Documented by: [id number] Admin: 12/09/19 14:32 Dose: 800 mg Documented by: [id number] Insulin Aspart (Novolog Flexpen) 0 units SC ACHS [facility] Stop: 01/08/20 12:29 Last Admin: 12/11/19 09:15 Dose: 14 units Documented by: [id number] Cosigned by: [id number] Admin: 12/10/19 21:46 Dose: 7 units Documented by: [id number] Cosigned by: [id number] Admin: 12/10/19 18:13 Dose: 13 units Documented by: [id number] Cosigned by: [id number] Admin: 12/10/19 14:01 Dose: 4 units Documented by: [id number] Cosigned by: [id number] Admin: 12/10/19 09:45 Dose: 5 units Documented by: [id number] Cosigned by: [id number] Admin: 12/09/19 22:27 Dose: 4 units Documented by: [id number] Cosigned by: [id number] Admin: 12/09/19 19:56 Dose: 11 units Documented by: [id number] Cosigned by: [id number] Admin: 12/09/19 14:34 Dose: 6 units Documented by: [id number] Cosigned by: [id number] Latanoprost (Xalatan Oph) 1 drops OP PM [facility] Stop: 01/08/20 20:59 Last Admin: 12/10/19 21:41 Dose: 1 drops Documented by: [id number] Admin: 12/09/19 20:34 Dose: 1 drops Documented by: [id number] Metoprolol Succinate (Toprol Xl) 100 mg PO PM [facility] Stop: 01/08/20 20:59 Last Admin: 12/10/19 21:41 Dose: 100 mg Documented by: [id number] Admin: 12/09/19 20:33 Dose: 100 mg Documented by: [id number] Polyethylene Glycol (Miralax Powder Packet) 17 gm PO Q6 [facility] Stop: 01/09/20 05:59 Last Admin: 12/11/19 06:20 Dose: 17 gm Documented by: [id number] Admin: 12/10/19 23:43 Dose: 17 gm Documented by: [id number] Admin: 12/10/19 18:12 Dose: 17 gm Documented by: [id number] Admin: 12/10/19 14:01 Dose: 17 gm Documented by: [id number] Admin: 12/10/19 05:30 Dose: 17 gm Documented by: [id number] Potassium Chloride (Klor-Con Pwd) 20 meq PO QAM [facility] Stop: 01/09/20 08:59 Last Admin: 12/10/19 09:51 Dose: 20 meq Documented by: [id number] Prednisone (Prednisone) 40 mg PO DAILY [facility] Stop: 01/09/20 08:59 Last Admin: 12/11/19 09:24 Dose: 40 mg Documented by: [id number] Admin: 12/10/19 09:51 Dose: 40 mg Documented by: [id number] Senna/Docusate Sodium (Senokot S) 2 tab PO HS [facility] Stop: 01/08/20 20:59 Last Admin: 12/10/19 21:43 Dose: 2 tab Documented by: [id number] Admin: 12/09/19 20:32 Dose: 2 tab Documented by: [id number] Discontinued Medications Acetaminophen (Tylenol) 1,000 mg PO PREOP [facility] Stop: 12/09/19 18:00 Last Admin: 12/09/19 06:47 Dose: 1,000 mg Documented by: [id number] Bacitracin (Bacitracin) Confirm Administered Dose 50,000 units .ROUTE .STK-MED ONE Stop: 12/09/19 07:02 Last Admin: 12/09/19 09:40 Dose: 50,000 units Documented by: [id number] Bupivacaine HCl (Marcaine 0.5% Mpf) Confirm Administered Dose 30 ml .ROUTE .STK- MED ONE Stop: 12/09/19 07:03 Last Admin: 12/09/19 08:15 Dose: 20 ml Documented by: [id number] Epinephrine HCl (Epinephrine) Confirm Administered Dose 1 mg .ROUTE .K-MED ONE Stop: 12/09/19 07:03 Last Admin: 12/09/19 08:15 Dose: 0.15 mg Documented by: [id number] Gabapentin (Neurontin) 300 mg PO PREOP [facility] Stop: 12/09/19 18:00 Last Admin: 12/09/19 06:46 Dose: Not Given Documented by: [id number] Gentamicin Sulfate (Garamycin) Confirm Administered Dose 240 mg .ROUTE .[facility]-MED ONE Stop: 12/09/19 08:05 Last Admin: 12/09/19 09:50 Dose: 240 mg Documented by: [id number] Lactated Ringer's (Lr) 1,000 mls @ 15 mls/hr IV .Q24H [facility] Stop: 12/10/19 05:59 Last Infusion: 12/09/19 07:43 Dose: 0 mls/hr Documented by: [id number] Admin: 12/09/19 06:40 Dose: 15 mls/hr Documented by: [id number] Cefazolin Sodium (Ancef 2000mg) 2,000 mg in 15 mls @ 3.75 mls/min IV PREOP [facility]AY; Protocol Stop: 12/09/19 18:00 Last Admin: 12/09/19 07:43 Dose: 3.75 mls/min Documented by: [id number] Cefazolin Sodium (Ancef 2000mg) 2,000 mg in 15 mls @ 3.75 mls/min IV Q8H [facility]AY; Protocol Stop: 12/10/19 00:03 Last Admin: 12/10/19 00:45 Dose: 3.75 mls/min Documented by: [id number] Admin: 12/09/19 16:41 Dose: 3.75 mls/min Documented by: [id number] Sodium Chloride (Nss 1000ml) 1,000 mls @ 100 mls/hr IV .Q10H [facility] Stop: 12/10/19 06:00 Last Infusion: 12/10/19 05:45 Dose: 0 mls/hr Documented by: [id number] Admin: 12/09/19 22:27 Dose: 100 mls/hr Documented by: [id number] Infusion: 12/09/19 21:20 Dose: 100 mls/hr Documented by: [id number] Admin: 12/09/19 14:31 Dose: 100 mls/hr Documented by: [id number] Sodium Chloride (Nss) 500 mls @ 80 mls/hr IV .Q6H15M [facility] Stop: 12/10/19 16:14 Last Infusion: 12/10/19 17:45 Dose: 0 mls/hr Documented by: [id number] Infusion: 12/10/19 14:35 Dose: 80 mls/hr Documented by: [id number] Admin: 12/10/19 10:30 Dose: 80 mls/hr Documented by: [id number] Insulin Human NPH (Novolin N U-100 Nph Per Unit) 20 units SQ NOW ONE Stop: 12/09/19 13:31 Last Admin: 12/09/19 14:33 Dose: 20 units Documented by: [id number] Cosigned by: [id number] Insulin Human NPH (Novolin N U-100 Nph Per Unit) 10 units SQ NOW STA Stop: 12/10/19 09:02 Last Admin: 12/10/19 09:44 Dose: 10 units Documented by: [id number] Cosigned by: [id number] Insulin Human NPH (Novolin N U-100 Nph Per Unit) 10 units SQ ONE ONE Stop: 12/11/19 09:01 Last Admin: 12/11/19 09:16 Dose: 10 units Documented by: [id number] Cosigned by: [id number] Miscellaneous (Floseal Hemostatic Matrix 10ml) 10 ml TOP ONCE ONE Stop: 12/09/19 09:51 Last Admin: 12/09/19 09:30 Dose: 27 ml Documented by: [id number] Vancomycin HCl (Vancomycin Hcl) Confirm Administered Dose 50 mg .ROUTE .STK-MED ONE Stop: 12/09/19 08:05 Last Admin: 12/09/19 09:50 Dose: 50 mg Documented by: [id number]
--- NOTE | 2019-12-11 11:41 | Orthopedic Progress Note ---
Date of Service December 11, 2019 Assessment & Plan (1) Neurogenic claudication due to lumbar spinal stenosis: This time we will continue physical therapy monitor his YVAN output and bowel function. Anticipate discharge to rehab tomorrow. Present on Admission?: Yes Admission and Anticipated Discharge Date Admission Date: December 09, 2019 Subjective Patient's back pain is controlled leg symptoms are improved. Physical Exam Physical Exam: On exam he is in the chair at the bedside. Is good strength testing. Results & Data ([facility]) Vital Signs (Past 12 Hours) Vital Signs Temp Pulse Resp BP Pulse Ox 12/11/19 08:01 36.8 C 55 L 16 113/70 94
[2019-12-11] MEDS ORDERED: SODIUM CHLORIDE 0.65% NA SOLN 45 ML (OCEAN) PRN (12:03)
[2019-12-11] MEDS: DOCUSATE SODIUM/SENNA 50/8.6MG TAB PO SCH (21:39)
[2019-12-11] MEDS: LATANOPROST 0.005% OP SOLN 2.5 ML BTL OP SCH (21:40)
[2019-12-11] MEDS: METOPROLOL SUCC 50MG EXT REL TAB PO SCH (21:40)
[2019-12-12] MEDS: POLYETHYLENE (MIRALAX) 17 GM PACK PO SCH ×2 (05:36→12:17)
[2019-12-12 05:50] LABS: Hematocrit (blood only) 28.6 % (42-52); Hemoglobin 8.7 g/dL (14.0-18.0); Mean Corpuscular Hemoglobin 28.3 pg (25-34); Mean Corpuscular Hgb Conc 30.4 g/dL (32-36); Mean Corpuscular Volume 93.2 fL (80-100); Mean Platelet Volume 9.5 fL (7.4-10.4); Platelet Count 347 K/uL (130-400); RDW Coefficient of Variation 18.3 % (11.5-14.5); RDW Standard Deviation 62.5 fL (36.4-46.3); Red Blood Count 3.07 M/uL (4.7-6.1); White Blood Count 20.19 K/uL (4.8-10.8)
[2019-12-12 06:27] LABS: BUN Creatinine Ratio 31.2 (10-20); Calcium 9.1 mg/dl (8.5-10.1); Creatinine Clr Calc Pharmacy 71.2 ml/min; Est GFR (African American) 74.3; Est GFR (Non-African American) 64.1; Potassium 4.6 mmol/L (3.5-5.1)
[2019-12-12] MEDS ORDERED: NovoLIN-N (NPH) PER UNIT CHARGE SQ ONE (09:00)
[2019-12-12] MEDS: FLUTICASONE/VILANTEROL 200/25MCG 14 PUFFS/INHALER INH SCH (09:21)
[2019-12-12] MEDS: allopurinoL 300 MG TAB PO SCH (09:22)
[2019-12-12] MEDS: CYANOCOBALAMIN 500 MCG TABLET (VITAMIN B-12) PO SCH (09:22)
[2019-12-12] MEDS: ASPIRIN 81 MG ECTAB PO SCH (09:22)
[2019-12-12] MEDS: GABAPENTIN 400 MG CAP PO SCH ×2 (09:23→14:54)
[2019-12-12] MEDS: predniSONE 20 MG TAB PO SCH (09:23)
[2019-12-12] MEDS: INSULIN ASPART 100 UNITS/ML 3 ML PEN SC SCH ×3 (09:29→17:06)
--- NOTE | 2019-12-12 14:25 | Discharge Summary ---
Date of Service December 12, 2019 Admission HPI Per Admitting Provider This is a 74-year-old male presents with chronic persistent back and bilateral leg pain. After failing extensive course of nonoperative care is here for surgical invention. Principal Diagnosis Lumbar spinal stenosis with neurogenic claudication Discharge Data Allergies Allergy/AdvReac Type Severity Reaction Status Date / Time ketorolac [From Toradol] Allergy Severe Difficulty Verified 12/09/19 06:39 Breathing Consultations 12/09/19 11:52 Consult Case Management - Discharge Planning Routine Consult Hospitalist Routine Procedures Performed Operation Date: 12/09/19 07:45 Actual Procedures p L4-S1 Decompression and Fusion, L4-5 interbody fusion, with Spinal Cord Monitoring - Carlos Jolly DO Ordered Studies 12/09/19 07:45 FL fluoroscopy <1hr Routine FL lumbar spine 2-3V Routine Hospital Course (1) Neurogenic claudication due to lumbar spinal stenosis: Patient underwent lumbar decompression fusion tolerated this well was taken to orthopedic for possibly. Postop day 1 developed up and ambulating. Aggressive postop day #2 and 3 YVAN drain decreasing probably. Pain improving. Strength improving. Subsequently discharged to rehab. Discharge orders written and instructions from the chart for further review. Total Time Total Time Spent Total Time Spent (In Minutes): 20 minutes Discharge Plan Discharge Items Patient Disposition: Transfer Inpatient Rehab Fac Reason For Visit: LUMBAR SPINAL STENOSIS W NEUROGENIC CLAUDICATION Discharge Diagnosis: Lumbar spinal stenosis with neurogenic claudication Activity: As commented below Non-emergency contact: Primary Care Provider Call non-emergency contact if: you have any medication questions Follow-up/Referrals: Gomez Storm [Primary Care Provider] - Diet: Regular Addtl Attending Provider Instructions: ACTIVITY RECOMMENDATIONS: SELF CARE INSTRUCTIONS AFTER THORACIC/LUMBAR FUSIONS 1. You may walk to your tolerance. It is good exercise for your legs and back. Expect some back and intermittent leg aches and pains. 2. You may perform "counter-top" level activities (make a sandwich, mee with a project, etc.). 3. No bending or lifting of more than 10 pounds or back twisting of any nature (roll like a log when turning in bed). 4. You may ride in a car for 20-30 minutes at a time. No driving until after your first visit with your doctor. 5. Frequent changes of position and restricting sitting to 30 minutes at a time will help limit the amount of back spasms and stiffness you may experience. 6. You may discontinue the use of ambulatory aids (cane, crutches, etc.) once your strength and confidence allow. 7. You may data processing mechanic the shower and let water strike your incision when you arrive home at least once daily. Do not take a tub bath, sit in a hot tub or go into a swimming pool until after your first recheck in the office. SPECIAL CARE INSTRUCTIONS: VERY IMPORTANT TO READ AND REVIEW A. Your surgical incision has been closed with a cosmetic suture under the skin that will dissolve in about 6 weeks. In 14 days, you can use a pair of clean scissors and cut the suture that is left outside of the skin at the ends of your incision. 1. The small skin tapes can be removed 7 days after surgery if they have not fallen off by that point. 2. You may keep the wound open to air as much as possible to promote healing after post-op day number 5 unless told otherwise by your doctor. 3. If you think the wound looks like it is becoming infected (redness or worsening drainage) and/or you are experiencing fever, chill or worsening back pain and muscle spasms, contact the office so that we may evaluate you as soon as possible. B. Complications are uncommon, but please contact us if you have any signs or symptoms of: 1. wound infection (fever higher than 102.5 degrees F, redness, separation of wound, drainage, or increasing pain from the incision) 2. blood clots in legs (pain, swelling, redness and warmth in legs) 3. urinary tract infection (fever higher than 102.5 degrees F, burning upon urination or increased frequency of urination) 4. nerve problems (inability to walk on your toes or heels, numbness, loss of bowel or bladder control) 5. any other symptoms that concern you C. Please call the office at if you have any concerns or questions about your operation or recovery. D. No smoking! Smoking drastically decreases the chance of a solid fusion. E. Do not take any anti-inflammatory medications (Indocin, Advil, Motrin, Aspirin, Naprosyn, etc.) as these may inhibit the chance of a solid fusion. Tylenol is okay to take for pain. MANAGING PAIN AFTER SPINAL SURGERY 1. Narcotic medication is intended for short-term use and will be provided for surgical pain. Surgical pain usually lasts for a period of 4-6 weeks. Narcotic medication includes Percocet, Vicodin, Darvocet, Tylenol #3 or Lortab. 2. Longer-term pain is more appropriately treated with non-narcotic medication such as Tylenol ES. 3. Muscle spasm is not appropriately treated with narcotics. Muscle relaxers such as Soma, Flexeril or Skelaxin can be used along with Tylenol ES. 4. Remember that we all live with some "aches and pains". This is not unusual or uncommon after an injury or as we get older. a. Back pain is expected and may include muscle spasms for 4 to 6 weeks after surgery. The pain should gradually improve. If the pain worsens for no apparent reason, please contact the office. b. Intermittent leg pain may also be experienced and should not be concerned about unless it worsens for no apparent reason. If so, please contact the office. 5. We will provide appropriate medication within the normal guidelines of their prescribed use. We will also be very cautious and aware of potential abuse and extended duration of patients' medication needs. a. Pain medications are for your comfort and to assist with sleep and rest so that the tissue can heal. They are not provided in order to return to normal activity and should not be used through the day. To do so or worsening pain at night can result from ongoing tissue damage and development of tolerance to the prescribed medicine. 6. Please allow 2-3 days to process refills. Prescriptions will not be mailed but must be picked up at the office. FOLLOW UP VISIT: Keep your scheduled follow-up appointment. Any questions, please call the office at . Pending Studies at Discharge: No Stand-Alone Forms: My [employer], Smoking Cessation Skilled Items Patient informed of condition?: Yes DNR: No Discharge Level of Care: Acute rehab Communicable Disease: No Discharge Prognosis: Improving Lines: None Urinary Catheter: No Medications and DC Order Prescriptions: New tramadol 50 mg tablet 50 mg PO Q6H PRN (Reason: pain, moderate) Qty: 30 RF: 0 oxycodone 5 mg tablet 5 mg PO Q6H PRN (Reason: pain, severe) Qty: 20 RF: 0 Continued furosemide [Lasix] 40 mg Tablet 40 mg PO PM RF: 0 metformin 500 mg Tablet 500 mg PO BID RF: 0 metoprolol succinate 100 mg Tablet Extended Release 24 Hr 100 mg PO PM RF: 0 aspirin [Aspir-81] 81 mg Tablet,Delayed Release (Dr/Ec) 81 mg PO QAM RF: 0 potassium chloride 20 mEq Packet 20 meq PO QAM RF: 0 furosemide [Lasix] 80 mg Tablet 80 mg PO QAM RF: 0 allopurinol 300 mg Tablet 300 mg PO QAM RF: 0 coenzyme Q10 [Co Q-10] 100 mg Capsule 100 mg PO BID RF: 0 budesonide-formoterol [Symbicort] 160-4.5 mcg/actuation Hfa Aerosol Inhaler 2 puff INHALATION BID RF: 0 turmeric 400 mg Capsule 400 mg PO BID RF: 0 gabapentin 400 mg Capsule 800 mg PO TID RF: 0 Fasenra 30 mg/mL Syringe 30 mg SUBCUT Q8WK RF: 0 latanoprost 0.005 % Drops 1 drp OPHTHALMIC (EYE) PM RF: 0 B12 Active 1,000 mcg Tablet,Chewable 1,000 mcg PO QAM RF: 0 prednisone 20 mg Tablet 20 mg PO DAILY RF: 0 Discharge Orders: Discharge Order (Routine); Ordered 12/12/19 Ordered By: Carlos Jolly Admission Data Admit Date/Time: 12/09/19 11:51 Attending Provider: Carlos Jolly Admit Provider: Carlos Jolly Primary Care Provider: Gomez Storm Other Providers: Desmond Espinoza ; Ashwin Desai Other Interventions: Discharge Summary Assessment (RN) Last Done: 12/12/19 13:58
--- NOTE | 2019-12-12 15:01 | Hospitalist Progress Note ---
Date of Service December 12, 2019 Assessment & Plan (1) Neurogenic claudication due to lumbar spinal stenosis: (2) Systolic CHF: Chronic left ventricular systolic heart failure secondary to nonischemic cardiomyopathy. Continue furosemide. Not on ALESSANDRA or ARB because of CKD. (3) Atrial fibrillation: Chronic AF. S/P ablation. Rate controlled. S/P Watchman procedure. Continue aspirin and metoprolol. (4) Chronic obstructive pulmonary disease: Followed by Pulm Med. Sounds like he may have combination of COPD + interstitial lung disease. Has been on varying doses of steroids over past year. Worsening dyspnea when steroids have been tapered. Continue prednisone 20 mg daily until seen for f/u by Pulmonary. (5) CKD (chronic kidney disease): Creatinine 1.13. Follow. (6) Diabetes mellitus, type 2: Hgb A1c 6.7. FBS 107. Discharge on usual regimen. (7) Gout: Continue allopurinol. (8) DVT prophylaxis: Per Ortho protocol. (9) Encounter for consultation: Thank you for this consultation. We will follow the patient with you during their hospital stay. My cell # is [phone]. You can reach a member of the [facility] Medicine Team 08/01 via pager @ [phone]. Admission and Anticipated Discharge Date Admission Date: December 09, 2019 Subjective Recheck for medical management. Patient seen in their room around 1440. Doing well postoperatively. Occasional cough which he attributes to postnasal drainage. No SOB. No chest pain. Passing flatus, but no stool yet. Pain well-controlled. Waiting to be transferred to rehab. Review of Systems: Constitutional- no fever. Cardiac- as noted above. Pulmonary- as noted above. GI- no nausea, vomiting - no urinary symptoms. Otherwise, as noted above. Physical Exam Physical Exam: General- no distress Lungs- clear to auscultation; no respiratory distress Cardiovascular- irregular; no JVD; trace pretibial edema; 1+ pedal edema Abdomen- + bowel sounds, soft, nontender Extremities- no cyanosis; no calf tenderness Neuro- alert, oriented Skin- warm & dry Results & Data Results & Data ([facility]) Vital Signs (Past 12 Hours) Vital Signs Temp Pulse Resp BP BP Pulse Ox 12/12/19 13:58 36.4 C L 63 16 96/65 L 110/72 92 12/12/19 12:14 63 96/65 L 92 12/12/19 07:42 36.4 C L 68 16 115/77 98 Laboratory Results 12/12/19 05:30 12/12/19 05:30
== END 2019-12-12 17:52 | DRG 454 ==
LOC: ASU 05:50 → 3E 11:51